=== PATIENT | male | born 1955 | race Caucasian/White ===

== ENCOUNTER → 2023-06-13 06:33 | Day surgery (SDC) | payer MEDICARE, OTHER, SELFPAY ==
[2023-06-13 09:08] LABS: Glucose - Point of Care 147 mg/dl (70-99)
== END ==
LOC: GI 06:33
PROVIDERS: ATTENDING PHYSICIAN Internal Medicine Gastroenterology
DX: D12.3 Benign neoplasm of transverse colon (principal); K57.30 Diverticulosis of large intestine without perforation or abscess without bleeding; K64.8 Other hemorrhoids; R93.3 Abnormal findings on diagnostic imaging of other parts of digestive tract
CPT/HCPCS: 45385; 88305; 82962